=== PATIENT | female | born 1995 | race Hispanic/Latino ===

== ENCOUNTER → 2022-08-22 | Outpatient (CLI) | payer OTHER | LOC: M WHC 13:47 | PROVIDERS: ATTEND Nurse Practitioner Women's Health | DX: Z36.89 Encounter for other specified antenatal screening (principal); Z3A.38 38 weeks gestation of pregnancy ==

== ENCOUNTER 2022-08-31 01:00 | Outpatient (CLI) | payer OTHER ==
[~2022-08-31] VITALS: Ht 157.5 cm; Wt 67.6 kg
[2022-08-31] MEDS ORDERED: PREN1CHW6 PO (01:23)
[2022-08-31] MEDS ORDERED: HOME MED LIST COMPLETE! XX SCH (01:25)
[2022-08-31 01:31] VITALS: BP 120/75
[2022-09-01] MEDS ORDERED: ACET325C5 PO (22:01)
== END 2022-08-31 04:15 | disposition left against medical advice (07) ==
LOC: M LDO 01:00
PROVIDERS: ATTEND Obstetrics & Gynecology
DX: O26.893 Other specified pregnancy related conditions, third trimester (principal); R25.2 Cramp and spasm; Z3A.39 39 weeks gestation of pregnancy
CPT/HCPCS: 59025; G0463

== ENCOUNTER 2022-09-01 21:42 | Inpatient (IN) | payer OTHER ==
[~2022-09-01] VITALS: Ht 157.5 cm; Wt 66.5 kg
[~2022-09-01 21:42] MED LIST: PREN1CHW6 PO
[2022-09-01] MEDS ORDERED: ACET325C5 PO (22:01)
[2022-09-01 22:03] VITALS: BP 136/86
[2022-09-01] MEDS ORDERED: HOME MED LIST COMPLETE! XX SCH (22:05)
[2022-09-01] MEDS ORDERED: LACTATED RINGER'S 1000 ML IV STA (23:09)
[2022-09-01] MEDS ORDERED: METHYLERGONOVINE MALEATE 0.2 MG/ML VIAL (J2210) IM PRN (23:10)
[2022-09-01] MEDS ORDERED: TRANEXAMIC ACID INJection 1,000 MG in NS 100 ML IV PRN (23:10)
[2022-09-01] MEDS ORDERED: OXYTOCIN DRIP 30 UNITS in IV 1 EA IV PRN ×4 (23:10)
[2022-09-01] MEDS ORDERED: LR 1,000 ML IV SCH (23:10)
[2022-09-01] MEDS ORDERED: LIDOCAINE 1% MDV 20ML VIAL INFIL PRN (23:10)
[2022-09-01] MEDS ORDERED: ONDANSETRON 4MG 2ML VIAL IV PRN (23:35)
[2022-09-01] MEDS ORDERED: NALOXONE INJ 0.4MG/1ML VIAL (J2310 PER 1MG) IV PRN (23:35)
[2022-09-01] MEDS ORDERED: LR 500 ML IV PRN (23:35)
[2022-09-01] MEDS ORDERED: ePHEDrine SULFATE 25 MG/5 ML(5MG/ML) SYRINGE IVP PRN (23:35)
[2022-09-01] MEDS ORDERED: diphenhydrAMINE 50MG/ML VIAL IV PRN (23:35)
[2022-09-01] MEDS ORDERED: EPIDURAL/PCA KEYS XX PRN (23:35)
[2022-09-01] MEDS ORDERED: FENTANYL 2MCG/ML ROPIVACAINE 0.2% IN 0.9% NACL 100ML IVBAG As Ordered ONE (23:43)
[2022-09-01 23:49] VITALS: BP 140/88
[2022-09-02] VITALS (46 sets, daily range): BP systolic 106–138; BP diastolic 62–91
[2022-09-02 00:27] LABS: HEMATOCRIT 38.6 % (36.0-47.0); MEAN CORPUSCULAR HEMOGLOBIN 28.1 pg (27.0-33.0); MEAN CORPUSCULAR HGB CONC 33.7 g/dl (32.0-36.5); MEAN CORPUSCULAR VOLUME 83.4 fl (80.0-96.0); PLATELET COUNT, AUTOMATED 228 10^3/uL (150-450); RED BLOOD COUNT 4.63 10^6/uL (4.00-5.40); WHITE BLOOD COUNT 11.6 10^3/uL (4.0-10.0)
[2022-09-02] MEDS: FENTANYL/ROPIVACAINE/NACL BAG 100 ML EPIDURAL SCH ×2 (00:46→09:14)
[2022-09-02] MEDS: LR 1,000 ML IV SCH ×3 (07:35→23:35)
[2022-09-02] MEDS ORDERED: OXYTOCIN DRIP 30 UNITS in IV 1 EA IV SCH ×2 (07:35→17:05)
[2022-09-02] MEDS ORDERED: ACETAMINOPHEN TAB 650MG DOSE (2X325MG) PO PRN (17:05)
[2022-09-02] MEDS ORDERED: IBUPROFEN 800 MG TAB PO PRN (17:05)
[2022-09-02] MEDS ORDERED: METHYLERGONOVINE MALEATE 0.2 MG TAB PO PRN (17:05)
[2022-09-02] MEDS ORDERED: DIBUCAINE 1% OINTMENT 30GM TOP PRN (17:05)
[2022-09-02] MEDS ORDERED: IBUPROFEN 600MG TAB PO PRN (17:05)
[2022-09-02] MEDS ORDERED: RHOGAM 300 MCG (1500 IU) INJ (J2790) IM SCH (17:05)
[2022-09-02] MEDS: DOCUSATE SODIUM 100MG CAPSULE PO PRN (21:13)
[2022-09-03 06:00] VITALS: BP 128/80
[2022-09-03 06:43] LABS: HEMATOCRIT 32.1 % (36.0-47.0); MEAN CORPUSCULAR HEMOGLOBIN 28.2 pg (27.0-33.0); MEAN CORPUSCULAR HGB CONC 32.7 g/dl (32.0-36.5); MEAN CORPUSCULAR VOLUME 86.3 fl (80.0-96.0); PLATELET COUNT, AUTOMATED 172 10^3/uL (150-450); RED BLOOD COUNT 3.72 10^6/uL (4.00-5.40)
[2022-09-03 07:04] LABS: HEMOGLOBIN 10.5 g/dl (12.0-15.5)
[2022-09-03] MEDS: PRENATAL VITAMINS CHEWABLE TABLET PO SCH (09:08)
[2022-09-03] MEDS: ACETAMINOPHEN 500 MG TAB PO PRN ×3 (09:08→21:34)
[2022-09-03] MEDS: DOCUSATE SODIUM 100MG CAPSULE PO PRN (21:31)
[2022-09-04 06:00] VITALS: BP 132/75
[2022-09-04] MEDS: PRENATAL VITAMINS CHEWABLE TABLET PO SCH (08:50)
[2022-09-04] MEDS ORDERED: MEASLES,MUMPS,RUBELLA VACCINE INJ (MMR-II) (90707) SC.IMMUN ONE (09:00)
== END 2022-09-04 15:13 | disposition home or self-care (01) | DRG 807 ==
LOC: M LDO 21:42 → M LDI 23:22 → M OBS 09-02 20:15
PROVIDERS: ADMIT Obstetrics & Gynecology; ATTEND Advanced Practice Midwife
PROC: 10E0XZZ Delivery of Products of Conception, External Approach (ICD-10-PCS; principal; 2022-09-02)
PROC: 0KQM0ZZ Repair Perineum Muscle, Open Approach (ICD-10-PCS; 2022-09-02)
DX: O70.1 Second degree perineal laceration during delivery (principal); Z37.0 Single live birth; Z3A.39 39 weeks gestation of pregnancy